=== PATIENT | male | born 1985 | race Caucasian/White ===

== ENCOUNTER 2017-07-26 22:45 | Emergency (ER) | payer BC ==
[~2017-07-26] VITALS: Ht 175.3 cm; Wt 102.1 kg
[2017-07-26 22:47] VITALS: BP 161/93
--- NOTE | 2017-07-26 23:54 | NUR ---
PT TAKEN TO BED 12
[2017-07-27] MEDS ORDERED: ALBUTEROL 0.083% 2.5 MG/3 ML NEBU INH ONE
--- NOTE | 2017-07-27 | NUR ---
32/M CAME IN W C/O CHEST PAIN X 2 HOURS AGO, CONSTANT, NONRADIATING, NONPROVOKED, PT REPORTS HE WAS RESTING WHEN CHEST PAIN STARTED. PT REPORTS HE WAS HAVING CHEST PALPITATIONS X 2 DAYS. DENIES SOB/COUGH, N/V/D, FEVER/CHILLS. 18RR ALL LUNG SOUNDS CBTA, 100% RA, 95HR EVEN AND REGULAR. DENIES PMH/RX/OTC
[2017-07-27 00:51] LABS: HEMATOCRIT 48.4 % (36-52); HEMOGLOBIN 16.2 g/dL (12.0-18.0); MEAN CORPUSCULAR HEMOGLOBIN 30 pg (27-31); MEAN CORPUSCULAR HGB CONC 33 g/dL (33-37); MEAN CORPUSCULAR VOLUME 89 fL (80-94); PLATELET COUNT (AUTO) 227 K/uL (140-450); RED BLOOD CELL COUNT(AUTO) 5.47 MIL/uL (4.20-6.10); RED CELL DISTRIBUTION WIDTH 12.3 % (11.6-13.7); WHITE BLOOD COUNT (AUTO) 10.4 K/uL (4.8-10.8)
[2017-07-27 00:52] LABS: ANION GAP 10.7 (8-16); CARBON DIOXIDE 30.7 mmol/L (21-32); CREATININE 1.3 mg/dL (0.7-1.3); POTASSIUM 3.4 mmol/L (3.5-5.1)
[2017-07-27 00:55] LABS: EOSINOPHILS % (MANUAL) 3 % (0-4); LYMPHOCYTES % (MANUAL) 38 % (20-46); MONOCYTES % (MANUAL) 6 % (5-12)
[2017-07-27 00:59] LABS: TOTAL BILIRUBIN 0.5 mg/dL (0.0-1.0)
[2017-07-27 01:29] LABS: APPEARANCE,URINE CLEAR (CLEAR); BILIRUBIN,URINE NEGATIVE (NEGATIVE); BLOOD, URINE NEGATIVE (NEGATIVE); COLOR,URINE YELLOW (YELLOW); LEUKOCYTE ESTERASE ,URINE NEGATIVE (NEGATIVE); NITRITE, URINE NEGATIVE (NEGATIVE); UGLUCOSE NEGATIVE (NEGATIVE)
[2017-07-27 01:41] LABS: RBC,URINE 0-5 (RARE) /HPF (0-5); WBC,URINE 0-5 (RARE) /HPF (0-5)
[2017-07-27 01:50] VITALS: BP 129/84
--- NOTE | 2017-07-27 01:50 | NUR ---
Patient discharged with v/s stable. Written and verbal after care instructions given and explained. Patient verbalized understanding. Ambulatory with steady gait. All questions addressed prior to discharge. Advised to follow up with PMD.
== END 2017-07-27 01:50 | disposition home or self-care (01) ==
LOC: MED 22:45
DX: I10 Essential (primary) hypertension (principal); R00.2 Palpitations
CPT/HCPCS: 36415; 36600; 71010; 80053; 81001; 83605; 84484; 85025; 87040; 93005; 94640; 99285; J7613; Q0092